=== PATIENT | female | born 1935 | race African-American/Black ===

== ENCOUNTER → 2017-04-27 | Outpatient (CLI) | payer MEDICARE, OTHER | LOC: OD 09:51 | DX: Z96.659 Presence of unspecified artificial knee joint (principal) | CPT/HCPCS: 87070 ==

== ENCOUNTER → 2018-09-07 | Outpatient (CLI) | payer MEDICARE, OTHER ==
--- NOTE | 2018-09-08 08:03 | XCELERA REPORT ---
[address] [address] Lower Extremity Arterial Evaluation Name: CHRIS CHASE Age: 83 yrs Gender: Female : 1935 Patient Status: Outpatient Patient Location: SP Study Date: 09/07/2018 01:15 PM Procedure: A color flow and duplex scan of the lower extremity arteries was performed bilaterally with velocity and waveform anaylsis. Reason For Study: PVD Ordering Physician: CLINT VALDES Performed By: Mich Vaz Measurements and Calculations Right Left DELIVERY CLERK PSV 107.5 111.0 cm/sec Prox PFA PSV -64.9 -69.0 cm/sec Prox Pop A PSV 66.8 71.2 cm/sec Dist MANDY PSV 60.4 63.3 cm/sec Dist PHOTOENGRAVING HELPER PSV 54.8 54.7 cm/sec Luke Pedis PSV -120.1 -143.8cm/sec Right Side Arterial Evaluation Normal velocity and triphasic waveforms noted from the Common Femoral artery to the infrageniculate vessels . Increased velocity in the Dorsalis Pedis. Ankle Brachial index not obtained due to Patient discomfort. Left Side Arterial Evaluation Normal velocity and triphasic waveforms noted from the Common Femoral artery to the infrageniculate vessels . Increased velocity in the Dorsalis Pedis. Ankle Brachial index not obtained due to Patient discomfort. Interpretation Summary Mild hemodynamically significant lesions in the bilateral lower extremities, on duplex imaging, at rest. A degree of stenosis suggested in the Dorsalis Pedis arteries. : CLINT VALDES > Aurelio Major
== END ==
LOC: SP 13:42
PROVIDERS: ATTEND Podiatrist Foot Surgery
DX: I73.9 Peripheral vascular disease, unspecified (principal); E11.49 Type 2 diabetes mellitus with other diabetic neurological complication
CPT/HCPCS: 93925

== ENCOUNTER → 2018-10-06 | Outpatient (CLI) | payer MEDICARE, OTHER ==
--- NOTE | 2018-10-07 11:58 | XCELERA REPORT ---
[address] [address] Tel: [phone] Fax: [phone] Lower Extremity Arterial Evaluation Name: CHRIS CHASE Age: 83 yrs Gender: Female : 1935 Patient Status: Outpatient Patient Location: RAD Study Date: 10/06/2018 03:29 PM Procedure: Ankle brachial indicies performed. Reason For Study: ERENDIRA Ordering Physician: CLINT VALDES Performed By: Mich Vaz Right Side Arterial Evaluation ERENDIRA in Posterior Tibial:1.09. Multiphasic waveform. Left Side Arterial Evaluation ERENDIRA in Anterior Tibial:1.18. Multiphasic waveform. Interpretation Summary Normal ERENDIRA, bilaterally. Suggesting near normal arterial system, within the limitations of this technique. : CLINT VALDES > Aurelio Major
== END ==
LOC: RAD 14:26
PROVIDERS: ATTEND Podiatrist Foot Surgery
DX: I70.25 Atherosclerosis of native arteries of other extremities with ulceration (principal)
CPT/HCPCS: 93922

== ENCOUNTER → 2018-10-22 | Day surgery (SDC) | payer MEDICARE, OTHER ==
[~2018-10-22] MED LIST: LIDOCAINE 1% INJ-PF (10 MG/ML) 30 ML SDV ONE
--- NOTE | 2018-10-25 16:39 | WOMENS IMAGING REPORT ---
EXAM DESCRIPTION: U/S BREAST BX; LEFT DIG DX MAMMO NO CHG COMPLETED DATE/TIME: 10/25/2018 11:26 am; 10/22/2018 2:09 pm REASON FOR STUDY: N63.21 UNSPECIFIED LUMP IN THE LEFT BREAST, UPPER OUTER QUADRANT; N63.21, N63, S/P LEFT BREAST BX FOR CLIP PLACEMENT N63.21 UNSPECIFIED LUMP IN THE LEFT BREAST, UPPER OUTER QUAD N63. 0 UNSPECIFIED LUMP IN UNSPECIFIED BREAST COMPARISON: Outside prior mammograms TECHNIQUE: The procedure was discussed with the patient and the patient agreed to proceed. The patient was scanned and the area of interest in the 1 o'clock position 8 cm from the nipple of th e left breast was localized. This correlates with the area of concern on prior imaging studies. This area was targeted for ultrasound-guided core biopsy. After sterile skin prep and 2.5 mL local lidocaine 1% for skin and deep tissue anesthesia, a 14 gauge coaxial core biopsy needle was used to obtain several cores of tissue from the lesion. Under ultras ound guidance, a ribbon clip was placed in the areas sampled. There were no immediate post-procedure complications. MAMMOGRAM: Post-procedure two view mammogram was acquired in the digital mammogram suite. The clip wa s in the expected location. No significant hematoma. Pathology yields a diagnosis of benign breast tissue, negative for atypia or malignancy. Pathology is concordant. LIMITATIONS: None. FINDINGS: Ultrasound guided breast biopsy as described above. POST PROCEDURE MAMMOGRAMS FOR MARKER PLACEMENT: Yes IMPRESSION: ULTRASOUND-GUIDED CORE BIOPSY OF THE LEFT BREAST YIELDS A DIAGNOSIS OF BENIGN BREAST TIS RENUKA, NEGATIVE FOR ATYPIA OR MALIGNANCY BI-RADS 2 Benign findings. COMMENT: PATIENT SHOULD RESUME YEARLY BILATERAL SCREENING MAMMOGRAPHY/ TOMOSYNTHESIS. COMMUNICATION: These findings were discussed with the patient, 1630 hours 10/25/2018. She understands that this is a benign diagnosis, and that she should return to bilateral screening mammography/tomos ynthesis Patient medication list reviewed: Yes- Quality ID# [id number]:Eligible professional attests to documenting i n the medical record they obtained, updated, or reviewed the patient's current medications. TECHNICAL DOCUMENTATION: JOB ID: [id number] [employer]- All Rights Reserved Reading location - IP/workstation name: [email or web address]
== END ==
LOC: WI 12:38
PROVIDERS: ATTEND Surgery
DX: N63.21 Unspecified lump in the left breast, upper outer quadrant (principal); N63.0 Unspecified lump in unspecified breast
CPT/HCPCS: 88305 ×2; 88342; 19083; J3490

== ENCOUNTER 2019-07-27 06:39 | Day surgery (SDC) | payer MEDICARE, OTHER ==
[~2019-07-27 06:39] MED LIST changes: +CEFAZOLIN SODIUM 1 GM in DEXTROSE 5%-WATER 50 ML IV PRN; +LACTATED RINGERS 1000 ML IV PRN; +LIDOCAINE 0.5% INJ-PF (5 MG/ML) 50 ML SDV SUBCUT PRN; -LIDOCAINE 1% INJ-PF (10 MG/ML) 30 ML SDV ONE
[2019-07-27] MEDS ORDERED: MIDAZOLAM 2 MG/2 ML INJ ONE (06:48)
[2019-07-27] MEDS ORDERED: LIDOCAINE 2% INJ-PF (20 MG/ML) 10 ML AMPUL ONE (06:48)
[2019-07-27] MEDS ORDERED: ONDANSETRON HCL INJ/PF 4 MG/2 ML SDV ONE (06:49)
[2019-07-27] MEDS ORDERED: FENTANYL CITRATE INJ/PF 100 MCG/2 ML AMPUL ONE (06:49)
[2019-07-27] MEDS ORDERED: PROPOFOL INJ 200 MG/20 ML VIAL IV ONE (06:49)
[2019-07-27] MEDS ORDERED: POLYMYXIN B SULFATE INJ 500000 UNIT VIAL ONE (07:06)
[2019-07-27] MEDS ORDERED: BUPIVACAINE HCL 0.5 % INJ/PF 30 ML SDV ONE (07:07)
[2019-07-27] MEDS ORDERED: LIDOCAINE 2% INJ (20 MG/ML) 20 ML MDV ONE (07:07)
[2019-07-27] MEDS ORDERED: NORMAL SALINE INJ/PF 0.9% 10 ML SDV ONE (07:07)
[2019-07-27] MEDS ORDERED: BACITRACIN INJ 50,000 UNIT VIAL ONE (07:07)
--- NOTE | 2019-07-27 10:00 | Operative Report ---
Operative Report DATE OF SURGERY: 07/27/19 PREOPERATIVE DIAGNOSIS: Deep buried ramon interphalangeal joint left hallux. POSTOPERATIVE DIAGNOSIS: Same OPERATION: Removal of deep buried ramon left hallux. SURGEON: CLINT BENNETT BRANCH ADMINISTRATOR: VALENTE BRIAN ANESTHESIA: LMAC TISSUE REMOVED OR ALTERED: Surgical ramon. COMPLICATIONS: None. ESTIMATED BLOOD LOSS: Less than 0.1 mL. PROCEDURE: Following induction of IV regional local anesthesia the left foot and leg prepped and draped in the usual sterile manner. A pneumatic tourniquet was placed around the left ankle and inflated to 250 mmHg after exsanguination of the limb via Esmarch bandage. The following surgical procedure was then performed: Removal of deep buried ramon left hallux. Attention was directed to the dorsal aspect of the left hallux at the interphalangeal joint where an x-ray was taken to ensure that the incision was making being made in the correct position. 2 transverse semielliptical incisions were made over the interphalangeal joint of the left hallux. The incision was deepened via sharp dissection. A capsular incision was made in a transverse fashion and the tissue was freed proximal and distal. Thus bringing into view the deeply buried ramon 1 of which was at the dorsal medial aspect of the interphalangeal joint and the second staple was at the dorsal lateral aspect of the interphalangeal joint. Utilizing needle-nose pliers both ramon were removed. Area was then flushed with copious amounts of an antibacterial saline solution. Deep tissue was then coaptated and maintained utilizing simple interrupted sutures of 3-0 Vicryl. The skin was then coaptated and maintained utilizing horizontal mattress sutures of 5-0 nylon. The foot was then cleansed with alcohol foam and dried. A dry sterile dressing was then applied consisting of Colton's silk, 4 x 4's, conform and Coflex. The pneumatic tourniquet was released, it was noted that all digits are warm and viable the patient was transferred to the recovery room.
--- NOTE | 2019-07-27 10:05 | PDOC DISCHARGE SUMMARY ---
Discharge Summary-[facility] Discharge Summary: Date of admission: July 27, 2019 Date of discharge: July 27, 2019 Surgical procedure: Removal of deeply buried ramon left hallux. Postoperative diagnosis: Deeply buried ramon left hallux. Surgeon: Rosy Moya D.P.M. Apparel Pattern Maker: Jaron Dave D.P.M. Patient was admitted to [facility] with a chief complaint of a painful area on top of her left big toe where she continued to get a hyperkeratotic lesion. X-rays taken in the office showed that 1 of the ramon at the interphalangeal joint of the left hallux was lifting up out of the bone and causing the hyperkeratotic lesion. Patient desired to have this staple removed so than she would no longer be in pain on the top of her big toe. She underwent the above surgical procedure without any complications and was transferred to the recovery room. The patient was discharged with a postoperative shoe, postoperative instructions, and postoperative prescriptions for Culver 5/325 mg #20 and Phenergan 25 mg #10. She was given a follow-up appointment in the doctor's office for August 04 at 3:45 PM. Patient was discharged from [facility].
--- NOTE | 2019-07-27 12:16 | RADIOLOGY REPORT (SQ) ---
EXAM DESCRIPTION: NO CHG FLUORO; FOOT LEFT 2 VIEWS COMPLETED DATE/TIME: 07/27/2019 11:40 am REASON FOR STUDY: LT FOOT STAPLE REMOVAL M25.572 PAIN IN LEFT ANKLE AND JOINTS OF LEFT FOOT COMPARISON: None. FLUOROSCOPY TIME: 0.04 seconds 1 Images saved to PACS TECHNIQUE: Intra-operative images acquired during surgical procedure to evaluate progress. NUMBER OF IMAGES: one LIMITATIONS: None. FINDINGS: Limited intraoperative fluoroscopic images obtained to evaluate progress. Please see oper ative report for detailed description. IMPRESSION: IMAGE(S) OBTAINED DURING PROCEDURE. COMMENT: Quality ID 145: Final reports for procedures using fluoroscopy that document radiation exp osure indices, or exposure time and number of fluorographic images (if radiation exposure indices are not available) Please consult full operative report of the attending physician for description of the procedure. TECHNICAL DOCUMENTATION: JOB ID: [id number] [employer]- All Rights Reserved Reading location - IP/workstation name: [email or web address]
--- NOTE | 2019-07-27 12:16 | RADIOLOGY REPORT (SQ) ---
EXAM DESCRIPTION: NO CHG FLUORO; FOOT LEFT 2 VIEWS COMPLETED DATE/TIME: 07/27/2019 11:40 am REASON FOR STUDY: LT FOOT STAPLE REMOVAL M25.572 PAIN IN LEFT ANKLE AND JOINTS OF LEFT FOOT COMPARISON: None. FLUOROSCOPY TIME: 0.04 seconds 1 Images saved to PACS TECHNIQUE: Intra-operative images acquired during surgical procedure to evaluate progress. NUMBER OF IMAGES: one LIMITATIONS: None. FINDINGS: Limited intraoperative fluoroscopic images obtained to evaluate progress. Please see oper ative report for detailed description. IMPRESSION: IMAGE(S) OBTAINED DURING PROCEDURE. COMMENT: Quality ID 145: Final reports for procedures using fluoroscopy that document radiation exp osure indices, or exposure time and number of fluorographic images (if radiation exposure indices are not available) Please consult full operative report of the attending physician for description of the procedure. TECHNICAL DOCUMENTATION: JOB ID: [id number] [employer]- All Rights Reserved Reading location - IP/workstation name: [email or web address]
== END 2019-07-27 10:35 | disposition home or self-care (01) ==
LOC: SC 06:39
PROVIDERS: ATTEND Podiatrist Foot Surgery
DX: T84.84XA Pain due to internal orthopedic prosthetic devices, implants and grafts, initial encounter (principal); Y83.9 Surgical procedure, unspecified as the cause of abnormal reaction of the patient, or of later complication, without mention of misadventure at the time of the procedure; M25.572 Pain in left ankle and joints of left foot; I10 Essential (primary) hypertension; E11.9 Type 2 diabetes mellitus without complications; Z79.84 Long term (current) use of oral hypoglycemic drugs; Z79.82 Long term (current) use of aspirin
CPT/HCPCS: 20680; 82962; 73620; J2250; J3490 ×6; J0690; J3010; J2405; J7060; J2704

== ENCOUNTER → 2019-11-07 | Outpatient (CLI) | payer MEDICARE, OTHER ==
--- NOTE | 2019-11-08 10:30 | WOMENS IMAGING REPORT ---
EXAM DESCRIPTION: 3D SCREENING MAMMO BILAT COMPLETED DATE/TIME: 11/07/2019 10:52 am REASON FOR STUDY: Z12.31 SCREENING MAMMO Z12.31 ENCNTR SCREEN MAMMOGRAM FOR MALIGNANT NEOPLASM OF B RE COMPARISON: Digital diagnostic left breast mammogram dated 10/22/2018. And digital tomosynthesis adrianne ateral screening mammogram dated 10/05/2018. EXAM PARAMETERS: Standard craniocaudal and mediolateral oblique views of each breast recorded using digital acquisition and breast tomosynthesis. Read with the assistance of CAD. .[facility] - R2 Polymerization Engineer Version 9.2 LIMITATIONS: None. FINDINGS: RIGHT BREAST MASSES: No suspicious masses. CALCIFICATIONS: No new or suspicious calcifications. ARCHITECTURAL DISTORTION: None. ASYMMETRY: Developing density in the upper breast, 6.4 cm from the nipple, mid depth. This finding is best seen on the RMLO view. OTHER: No other significant findings. LEFT BREAST MASSES: No suspicious masses. CALCIFICATIONS: No new or suspicious calcifications. ARCHITECTURAL DISTORTION: Biopsy marker adjacent to the small nodule in the upper outer quadrant of the breast, stable finding. ASYMMETRY: None noted. OTHER: No other significant findings. IMPRESSION: 1. Developing density Right breast. 0 Incomplete: Needs Additional Imaging Evaluation and/or prior Mammograms for Comparison. BREAST DENSITY: c. The breasts are heterogeneously dense, which may obscure small masses. BIRAD: ASSESSMENT: 0 Incomplete: Needs Additional Imaging Evaluation and/or prior Mammograms for C omparison. RECOMMENDATION: 1. Special view mammogram Right breast: spot compression views, true lateral view and ultrasound if indicated. The patient will be contacted for additional imaging. COMMENT: The patient has been notified of the results by letter per MQSA requirements. Additional no tification policies are in place for contacting patient with suspicious or incomplete findings. Quality ID #225: The [employer] recommends an annual screening mammogram for women aged 40 years or over. This facility utilizes a reminder system to ensure that all patients receive reminder letters, and/or direct phone calls for appointments. This includes reminders for routine scr eening mammograms, diagnostic mammograms, or other Breast Imaging Interventions when appropriate. Th is patient will be placed in the appropriate reminder system. TECHNICAL DOCUMENTATION: FINDING NUMBER: (1) ASSESSMENT: (1) JOB ID: [id number] 2010 [employer]- All Rights Reserved Reading location - IP/workstation name: [email or web address]
== END ==
LOC: WI 10:10
PROVIDERS: ATTEND Surgery
DX: Z12.31 Encounter for screening mammogram for malignant neoplasm of breast (principal); N63.21 Unspecified lump in the left breast, upper outer quadrant
CPT/HCPCS: 77063; 77067

== ENCOUNTER → 2019-11-11 | Outpatient (CLI) | payer MEDICARE, OTHER ==
--- NOTE | 2019-11-11 14:45 | WOMENS IMAGING REPORT ---
EXAM DESCRIPTION: RIGHT DIAGNOSTIC MAMMO W/CAD; U/S BREAST UNILAT LIMITED COMPLETED DATE/TIME: 11/11/2019 1:09 pm; 11/11/2019 1:50 pm REASON FOR STUDY: RT BREAST DENSITY; DEVELOPING DENSITY R92.2 R92.2 INCONCLUSIVE MAMMOGRAM COMPARISON: 11/07/2019. 2019. EXAM PARAMETERS: Compression MLO. Non compressed true lateral. Targeted breast ultrasound. LIMITATIONS: None. FINDINGS: BREAST LATERALITY: Right MASSES: No suspicious masses. CALCIFICATIONS: No new or suspicious calcifications. ARCHITECTURAL DISTORTION: Area of potential distortion/focal density looks less conspicuous on MLO co mpression and is not seen on true lateral view. See ultrasound. ASYMMETRY: None noted. OTHER: No other significant findings. Ultrasound: Scanning of the breast in the region of interest upper outer quadrant from 9 through 12 o 'clock. Generally dense echogenic tissue noted. At a left an -12 o'clock, there is irregular hypoec hoic tissue with lateral shadowing. This focus measures up to 9 mm maximally and is indeterminate ot herwise. IMPRESSION: 1. Diagnostic mammography shows the area of interest to be less conspicuous. 2. However, there is a hypoechoic lesion which may represent a mass at 11- 12 o'clock. This is puneet ble to ultrasound-guided core biopsy if clinically desired. BREAST DENSITY: c. The breasts are heterogeneously dense, which may obscure small masses. BIRAD: ASSESSMENT: 4 Suspicious. Biopsy should be performed in the absence of clinical contra-indic ation. RECOMMENDATION: RECOMMENDED FOLLOW UP: Birads 4: Biopsy should be performed in the absence of clinic al contraindication. SPECIFIC INTERVENTION/IMAGING/CONSULTATION RECOMMENDED:Ultrasound-guided core biopsy with mick garcia. COMMUNICATION:I did not have the opportunity to discuss findings with the patient at the time of her visit. She was instructed by the technologist to followup with referring clinician for further manag ement. COMMENT: The patient has been notified of the results by letter per MQSA requirements. Additional no tification policies are in place for contacting patient with suspicious or incomplete findings. Quality ID #225: The [employer] recommends an annual screening mammogram for women aged 40 years or over. This facility utilizes a reminder system to ensure that all patients receive reminder letters, and/or direct phone calls for appointments. This includes reminders for routine scr eening mammograms, diagnostic mammograms, or other Breast Imaging Interventions when appropriate. Th is patient will be placed in the appropriate reminder system. TECHNICAL DOCUMENTATION: FINDING NUMBER: (1) ASSESSMENT: (1) JOB ID: [id number] 2010 [employer]- All Rights Reserved Reading location - IP/workstation name: [email or web address]
== END ==
LOC: WI 13:36
PROVIDERS: ATTEND Surgery
DX: R92.2 Inconclusive mammogram (principal)
CPT/HCPCS: 76642; 77065

== ENCOUNTER → 2019-12-08 | Day surgery (SDC) | payer MEDICARE, OTHER ==
[~2019-12-08] MED LIST changes: -CEFAZOLIN SODIUM 1 GM in DEXTROSE 5%-WATER 50 ML IV PRN; -LACTATED RINGERS 1000 ML IV PRN; -LIDOCAINE 0.5% INJ-PF (5 MG/ML) 50 ML SDV SUBCUT PRN; +LIDOCAINE 1% INJ-PF (10 MG/ML) 30 ML SDV ONE
--- NOTE | 2019-12-08 15:05 | WOMENS IMAGING REPORT ---
EXAM DESCRIPTION: U/S BREAST UNILAT LIMITED COMPLETED DATE/TIME: 12/08/2019 1:54 pm REASON FOR STUDY: N63.12 UNSPECIFIED LUMP IN THE RIGHT BREAST, UPPER INNER QUADRANT N63.12 UNSPECIF IED LUMP IN THE RIGHT BREAST, UPPER INNER ERNESTO COMPARISON: None. TECHNIQUE: Real-time and static grayscale imaging performed of the right breast targeted to the area of clinical/mammographic concern. Selected color Doppler images recorded. LIMITATIONS: None. FINDINGS: Patient originally scheduled for ultrasound-guided biopsy. However no suspicious lesion c ould be identified. IMPRESSION: No suspicious findings detected by ultrasound. BIRAD: 3 Probably benign finding. Initial short-interval follow-up suggested. RECOMMENDATION: RECOMMENDED FOLLOW-UP: 6 month follow-up right diagnostic mammogram and potential ul trasound. COMMENT: The [employer] (A[employer]) has developed recommendations for screening MRI of the breasts in certain patient populations, to be used in conjunction with mammography. Breast MRI s urveillance may be appropriate for women with more than 20% lifetime risk of developing breast cancer as determined by genetic testing, significant family history of the disease, or history of mantle r adiation for Hodgkins Disease. ACR Practice Guidelines 2008. TECHNICAL DOCUMENTATION: JOB ID: [id number] 2010 [employer]- All Rights Reserved Reading location - IP/workstation name: [email or web address]
== END ==
LOC: RAD 13:00
PROVIDERS: ATTEND Surgery
DX: N63.12 Unspecified lump in the right breast, upper inner quadrant (principal)
CPT/HCPCS: 76642; J3490